=== PATIENT | male | born 1960 | race Caucasian/White ===

== ENCOUNTER → 2016-03-25 | Day surgery (SDC) | payer OTHER ==
[~2016-03-25] MED LIST: ACETAMINOPHEN/HYDROcodone 325 MG/5 MG TAB ONE; BUPIVACAINE/EPINEPHRINE 0.25% PF 30 ML VIAL ONE; LACTATED RINGER'S 1000 ML INJ 1,000 ML ONE; ONDANSETRON HCL 4 MG/2 ML VIAL IV PUSH ONE; PROPOFOL 200 MG/20 ML AMP IV ONE; ceFAZolin INJ 1,000 MG VIAL ONE
--- NOTE | 2016-03-28 06:09 | MP ---
cc: [facility] DATE OF SURGERY: 03/25/2016 PREOPERATIVE DIAGNOSIS: Right knee medial meniscus tear. POSTOPERATIVE DIAGNOSES Right knee medial meniscus tear. PROCEDURE Right knee arthroscopic partial meniscectomy. SURGEON Dr. Kermit Meza ANESTHESIA General. ESTIMATED BLOOD LOSS: Less then 10 cc. TOURNIQUET TIME: NONE. COMPLICATIONS: None. JUSTIFICATION: This patient is a 55 year-old male who injured his right knee, has had persistent pain in regards to the medial compartment knee with failure of conservative as clinical exam as well as MRI confirmed the above-named findings. The patient counseled as and alternatives to the above-named surgical procedure. He did wish to proceed with surgery. PROCEDURE IN DETAIL: A written consent was obtained. The patient identified, taken to the operating room placed in supine position, placed on general anesthesia administered as well as 1 gram of IV Ancef. The right thigh carefully placed in well-padded leg donohue right lower extremity prepped and draped using as Isopropyl alcohol, Hibiclens solution, DuraPrep solution. A standard medial and lateral parapatellar arthroscope portal established patellofemoral joint revealed minimal chondromalacia in the medial compartment, revealed a complex unstable tear of enforcement safety officer horn medial meniscus. And arthroscopic Biter followed by an arthroscopic Shaver was then introduced into the medial compartment to perform partial meniscectomy. The meniscal rim was probed and noted after meniscectomy there was some evidence of focal grade 2 chondromalacia. A gentle chondroplasty medial femoral condyle was performed. The intercondylar notch revealed the anterior posterior cruciate ligament to be intact lateral compartment was free of meniscal pathology chondromalacia. At the conclusion of surgical procedure 30 cc 0.50% Marcaine with epinephrine was injected into the knee joint. The arthroscopic portals were closed with 3-0 Prolene suture. Sterile dressing applied. The patient tolerated the procedure well. No intraoperative complications were noted. MD DAWIT Wilkinson/daniel /3:47 PM /6:03 AM
== END | disposition home or self-care (01) ==
LOC: ESDC 13:16
PROVIDERS: ATTEND Orthopaedic Surgery Sports Medicine
DX: S83.231A Complex tear of medial meniscus, current injury, right knee, initial encounter (principal); M94.261 Chondromalacia, right knee
CPT/HCPCS: 01400; 29881; J0690; J2405; J3010; J7120